=== PATIENT | female | born 1970 | race Caucasian/White ===

== ENCOUNTER 2018-09-07 11:02 | Emergency (ER) | payer OTHER ==
[~2018-09-07] VITALS: Ht 157.5 cm; Wt 61.2 kg
[2018-09-07 11:05] VITALS: BP 161/81
[2018-09-07] MEDS ORDERED: NKM (11:08)
[2018-09-07 12:36] VITALS: BP 145/78
--- NOTE | 2018-09-07 12:57 | Emergency Room Report ---
History of Present Illness General Chief Complaint: Laceration Source: Patient Present Illness HPI 47-year-old female cut her left fourth digit distal tuft while using a metal handled mop just prior to arrival. Unknown tetanus status. Patient with minimal bleeding but +pain. Allergies: Coded Allergies: No Known Allergies (Unverified , 09/07/18) Patient History Past Medical History: see triage record Last Menstrual Period: 08/11/18 Reviewed Nursing Documentation: PMH: Agreed; PSxH: Agreed Nursing Documentation-PMH Past Medical History: No Stated History Review of Systems Constitutional: Denies: fever Eye: Denies: acuity changes Respiratory: Denies: cough, shortness of breath Cardiovascular: Denies: chest pain Gastrointestinal: Denies: nausea, vomiting Skin: Denies: rash Neurological: Denies: headache Physical Exam Vital Signs Date Time Temp Pulse Resp B/P (MAP) Pulse Ox O2 Delivery O2 Flow Rate FiO2 09/07/18 11:05 98.2 72 18 161/81 99 Room Air General Appearance: well appearing, no apparent distress Head: normocephalic, atraumatic ENT: hearing grossly normal, normal voice Neck: full range of motion, supple Respiratory: no respiratory distress, speaking full sentences Musculoskeletal: normal range of motion, no calf tenderness Neurologic: alert, normal gait Psychiatric: mood/affect normal Skin: no rash, laceration - 4cm distal tuft 4th digit volar aspect L hand linear lac, no bone or tendon visible Procedures Laceration/Wound Repair Laceration/Wound Repair : Consent: Verbal Wound's Depth, Shape: superficial, linear Wound Explored: clean Irrigated w/ Saline (ccs): 500 Betadine Prep?: Yes Anesthesia: 1% Lidocaine Wound Debrided: minimal Wound Repaired With: sutures Suture Size/Type: 4:0 Number of Sutures: 7 Layer Closure?: Yes Medical Decision Making Diagnostic Impression: Primary Impression: Laceration ER Course Patient with finger lac, irrigated, no fb on xr or exam, repaired, will dc with f/u rec. Other X-Ray Diagnostic Results Other X-Ray Diagnostic Results : X-Ray ordered: hand # of Views/Limited Vs Complete: 3 View Indication: Pain EP Interpretation: Yes Interpretation: no dislocation, no soft tissue swelling, no fractures Impression: No acute disease Electronically Signed by: Angelique Do MD Last Vital Signs Date Time Temp Pulse Resp B/P (MAP) Pulse Ox O2 Delivery O2 Flow Rate FiO2 09/07/18 12:36 98.0 84 20 145/78 100 Room Air Referrals: [facility] (PCP) ANGELIQUE DO M.D Sep 07, 2018 12:57
--- NOTE | 2018-09-07 12:58 | Diagnostic Imaging Report ---
Indication: pain in finger. trauma Findings: 3 views of the left fourth digit were obtained. Soft tissue irregularity of the distal part of the fourth finger noted. No radiopaque foreign body, malalignment or acute fracture identified. IMPRESSION: Fourth finger soft tissue injury
[2018-09-07] MEDS ORDERED: IBUPROFEN600 MG ORAL (13:12)
[2018-09-07] MEDS ORDERED: CEPHALEXIN500 MG ORAL (13:12)
[2018-09-07] MEDS ORDERED: Bacitracin Oint UD TOPIC ONE (13:30)
[2018-09-07 13:35] VITALS: BP 145/78
== END 2018-09-07 13:35 | disposition home or self-care (01) ==
LOC: EMR 12:29
DX: S61.215A Laceration without foreign body of left ring finger without damage to nail, initial encounter (principal); W45.8XXA Other foreign body or object entering through skin, initial encounter; Y92.9 Unspecified place or not applicable
CPT/HCPCS: 99283